=== PATIENT | female | born 2000 | race Caucasian/White ===

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

== ENCOUNTER 2021-08-01 10:05 | Outpatient (CLI) | payer BC ==
[~2021-08-01] VITALS: Ht 182.9 cm; Wt 72.0 kg
[~2021-08-01 10:05] MED LIST changes: +ETHI1TAB26; +MINO100C5
[2021-08-01] MEDS ORDERED: diphenhydrAMINE 50 MG/ML INJ (BENADRYL) IV PRN (10:15)
[2021-08-01] MEDS ORDERED: CASIRIVIMAB/IMDEVIMAB 1,200 MG in NS (IVPB) 250 ML IV ONE (10:15)
[2021-08-01] MEDS ORDERED: ACETAMINOPHEN 500 MG TAB (TYLENOL) PO PRN (10:15)
[2021-08-01] MEDS ORDERED: ONDANSETRON 4 MG/2 ML (SDV) Z0FRAN IV PRN (10:15)
[2021-08-01] MEDS ORDERED: EPINEPHrine INJECTION 1 MG/ML AMP IM PRN (10:15)
[2021-08-01 10:31] VITALS: BP 120/67
[2021-08-01 11:54] VITALS: BP 110/69
== END 2021-08-01 11:54 | disposition home or self-care (01) ==
LOC: INFUSION 10:05
PROVIDERS: ATTEND Internal Medicine
DX: Z23 Encounter for immunization (principal); U07.1 COVID-19